=== PATIENT | male | born 1955 | race African-American/Black ===

== ENCOUNTER 2023-11-30 13:10 | Emergency (ER) | payer MEDICARE, MEDICAID ==
[~2023-11-30] VITALS: Ht 190.5 cm; Wt 159.0 kg
[2023-11-30 14:13] LABS: Mean Corpuscular Volume 89.3 fL (80.0-100.0); Red Cell Distribution Width 14.6 % (11.8-14.3)
[2023-11-30 14:15] LABS: Hematocrit 37.5 % (41.0-53.0); Hemoglobin 12.7 g/dL (13.5-17.5); Mean Corpuscular Hemoglobin 30.3 pg (28.0-32.0); Mean Corpuscular Hgb Conc. 33.9 g/dL (32.0-36.0)
[2023-11-30 14:24] LABS: Band Neutrophils % (manual) 0; Basophils % (manual) 0 (0.0-2.0); Blast Cells 0; Metamyelocytes % 0; Myelocytes % 0; Promyelocytes % 0; Reactive Lymphocytes 0
[2023-11-30 14:42] LABS: Alanine Aminotransferase 37 U/L (7-40); Albumin 3.9 g/dL (3.2-4.8); Alkaline Phosphatase 58 U/L (46-116); Anion Gap 3 (5-15); Aspartate Aminotransferase 14 U/L (13-40); Bilirubin, Total 0.9 mg/dL (0.2-1.0); Blood Urea Nitrogen 12 mg/dL (9-23); Calcium 8.7 mg/dL (8.7-10.4); Carbon Dioxide 27 mmol/L (20-30); Chloride 103 mmol/L (98-107); Glucose 102 mg/dL (74-106); Lipase 24 U/L (12-53); Magnesium 1.6 mg/dL (1.6-2.6); Potassium 4.2 mmol/L (3.5-5.1); Sodium 133 mmol/L (136-145); Total Protein 5.9 g/dL (5.7-8.2)
[2023-11-30 15:02] LABS: Eosinophils % (manual) 2 (0-7); Lymphocytes % (manual) 74 (10.0-50.0); Monocytes % (manual) 15 (0-12); Platelet Estimate Adequate
[2023-11-30] MEDS: LIDOCAINE VISCOUS 2% 15ML UD PO ONE (16:00)
[2023-11-30 18:03] LABS: Rapid Influenza A Negative (Negative); Rapid Influenza B Negative (Negative)
[2023-11-30 18:04] LABS: COVID19 ANTIGEN SOFIA FIA NEGATIVE (NEGATIVE)
[2023-11-30] MEDS: NITROGLYCERIN 0.4 MG SL TAB SL ONE (21:00)
[2023-11-30 22:00] VITALS: PULSE 89; RESP 20
[2023-11-30 22:40] VITALS: BP 128/63; PULSE 85; RESP 14; TEMP 99; O2SAT 97
== END 2023-11-30 23:33 | disposition short-term general hospital (02) ==
LOC: EDBD 13:10 → ER 13:10
DX: D70.9 Neutropenia, unspecified (principal); R07.89 Other chest pain; I10 Essential (primary) hypertension; E78.5 Hyperlipidemia, unspecified; J44.9 Chronic obstructive pulmonary disease, unspecified; E66.01 Morbid (severe) obesity due to excess calories; Z68.41 Body mass index [BMI] 40.0-44.9, adult; Z86.2 Personal history of diseases of the blood and blood-forming organs and certain disorders involving the immune mechanism; Z98.890 Other specified postprocedural states; Z20.822 Contact with and (suspected) exposure to COVID-19
CPT/HCPCS: 36415; 71046; 74176; 80053; 83605; 83690; 83735; 84484; 85007; 85027; 87426; 87804; 93005